=== PATIENT | male | born 1990 | race Two or more races ===

== ENCOUNTER 2020-03-26 03:35 | Emergency (ER) | payer MEDICAID ==
[~2020-03-26] VITALS: Ht 175.3 cm; Wt 111.1 kg
[2020-03-26 05:13] VITALS: BP 139/96
== END 2020-03-26 07:22 | disposition home or self-care (01) ==
LOC: ER 03:37
DX: H61.21 Impacted cerumen, right ear (principal); H66.91 Otitis media, unspecified, right ear

== ENCOUNTER 2023-05-19 01:43 | Emergency (ER) | payer MEDICAID ==
[~2023-05-19] VITALS: Ht 175.3 cm; Wt 113.6 kg
[2023-05-19 03:20] VITALS: BP 130/79; PULSE 81; RESP 18; TEMP 97.4; O2SAT 96
== END 2023-05-19 04:43 | disposition home or self-care (01) ==
LOC: ER 01:43
DX: M25.522 Pain in left elbow (principal); Z47.89 Encounter for other orthopedic aftercare
CPT/HCPCS: 29105